=== PATIENT | female | born 1965 | race Caucasian/White ===

== ENCOUNTER 2018-10-04 17:34 | Emergency (ER) | payer OTHER ==
[2018-10-04] MEDS ORDERED: NA CHLORIDE 0.9% 1,000 ML ONE (18:25)
[2018-10-04 18:40] LABS: Absolute Lymphocytes (CBC) 1.8 K/uL (0.7-4.9); Absolute Monocytes 0.8 K/uL (0.1-1.3); Absolute Neutrophil 3.1 K/uL (1.8-8.0); Basophils % 1.1 % (0-1.3); Eosinophils % 0.7 % (0-4.4); Hematocrit 45.8 % (36.0-45.0); Lymphocytes % 31.3 % (15.3-44.8); MPV 8.8 fL (7.6-11.3); RBC Red Blood Cell Count 5.74 M/uL (3.86-4.86)
[2018-10-04 18:51] LABS: Urine Blood NEGATIVE (NEG); Urine Glucose NEGATIVE (NEG); Urine Protein 2+ (NEG); Urine Specific Gravity >1.030 (1.005-1.030); Urine pH 5.5 (5.0-7.0)
[2018-10-04 18:54] LABS: Albumin 4.2 g/dL (3.4-5.0); Bilirubin Direct 0.2 mg/dL (0-0.2); Bilirubin Total 0.9 mg/dL (0.2-1.0); Potassium 4.1 mmol/L (3.5-5.1); Protein, Total 8.6 g/dL (6.4-8.2)
[2018-10-04] MEDS ORDERED: MUPIROCIN 2% OINT 22GM TUBE TOP ONE (19:19)
[2018-10-04] MEDS ORDERED: ONDANSETRON 4 MG/2 ML VIAL ONE ×2 (19:25→20:06)
[2018-10-04] MEDS ORDERED: MORPHINE 4 MG/ML SYR ONE ×2 (19:25→20:06)
--- NOTE | 2018-10-04 19:41 | RAD REPORT ---
EXAM DESCRIPTION: CT - Abdomen Pelvis W Contrast - 10/04/2018 7:27 pm CLINICAL HISTORY: Right-sided abdominal pain, nausea and vomiting COMPARISON: None. TECHNIQUE: Biphasic, helical CT imaging of the abdomen and pelvis was performed following 100 ml non -ionic IV contrast. Oral contrast was given. All CT scans are performed using dose optimization technique as appropriate and may include automated exposure control or mA/KV adjustment according to patient size. FINDINGS: No suspicious findings in the lung bases. No pericardial thickening or effusion. The liver, spleen, and pancreas show no suspicious findings. Gallbladder size is normal. No biliary t ree dilatation. Gallbladder contains numerous punctate gallstones layering in the dependent portion o f the gallbladder. No duct stone seen. No active gallbladder process identifiable. Symmetric renal function is seen with no hydronephrosis or suspicious renal mass. No pyelonephritis o r acute parenchymal process. No bladder abnormalities. No adrenal abnormalities. Uterus and ovaries s how no suspicious findings. No gastric dilatation or wall thickening. There are several prominent but nondilated small bowel loop s. Cecum is low-lying in the pelvis. No appendicitis findings. No acute colon process seen. No free air, free fluid or inflammatory stranding. No hernia, mass or bulky lymphadenopathy. No suspicious bony findings. IMPRESSION: Multiple prominent fluid-filled nondilated small bowel loops. Findings would favor a non specific enteritis. Patient has numerous punctate gallstones without active gallbladder process evident. No biliary tree dilatation or duct stone identified.
[2018-10-04] MEDS ORDERED: LIDOCAINE VISCOUS 2% SOLN 15 ML UDC ONE (20:02)
[2018-10-04] MEDS ORDERED: MAGNE/ALUM HYDROXD 30 ML UCUP ONE (20:02)
[2018-10-04] MEDS ORDERED: FAMOTIDINE 20 MG/2 ML VIAL IV ONE (20:06)
[2018-10-04] MEDS ORDERED: CIPROFLOXACIN HCL 500 MG TAB ONE (20:39)
[2018-10-04] MEDS ORDERED: METRONIDAZOLE 500mg IVPB 500 MG/100 ML BAG IV ONE (20:39)
--- NOTE | 2018-10-04 20:43 | EDPHYS ---
Physician Documentation [facility] Name: Janeth Baca Age: 53 yrs Sex: Female : 1965 Arrival Date: 10/04/2018 Time: 17:38 Bed 27 Private MD: None, None ED Physician Casey Lawson HPI: 10/04 20:49 This 53 yrs old Female presents to ER via Ambulatory with complaints of pm1 Abdominal Pain. 20:49 The patient presents with abdominal pain in the left upper quadrant. Onset: The pm1 symptoms/episode began/occurred 1 week(s) ago. The symptoms do not radiate. Associated signs and symptoms: Pertinent positives: diarrhea, nausea, occasional vomiting with eating, Pertinent negatives: chest pain, dysuria, fever, shortness of breath. The symptoms are described as burning. Modifying factors: The symptoms are alleviated by nothing, the symptoms are aggravated by food. Severity of pain: in the emergency department the pain has resolved pain comes and goes. The patient has not experienced similar symptoms in the past. The patient has not recently seen a physician. 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 - Social history:: Smoking status: Patient/guardian denies using tobacco. - Ebola Screening: : Patient denies travel to an Ebola-affected area in the 21 days before illness onset. ROS: 20:49 Constitutional: Negative for fever, chills, and weight loss, Eyes: Negative for injury, pm1 pain, redness, and discharge, ENT: Negative for injury, pain, and discharge, Neck: Negative for injury, pain, and swelling, Cardiovascular: Negative for chest pain, palpitations, and edema, Respiratory: Negative for shortness of breath, cough, wheezing, and pleuritic chest pain. 20:49 Back: Negative for injury and pain, : Negative for injury, bleeding, discharge, and swelling, MS/Extremity: Negative for injury and deformity, Skin: Negative for injury, rash, and discoloration, Neuro: Negative for headache, weakness, numbness, tingling, and seizure. 20:49 Abdomen/GI: Positive for abdominal pain, nausea, vomiting, and diarrhea. Exam: 20:49 Constitutional: This is a well developed, well nourished patient who is awake, alert, pm1 and in no acute distress. Head/Face: Normocephalic, atraumatic. Eyes: Pupils equal round and reactive to light, extra-ocular motions intact. Lids and lashes normal. Conjunctiva and sclera are non-icteric and not injected. Cornea within normal limits. Periorbital areas with no swelling, redness, or edema. ENT: Nares patent. No nasal discharge, no septal abnormalities noted. Tympanic membranes are normal and external auditory canals are clear. Oropharynx with no redness, swelling, or masses, exudates, or evidence of obstruction, uvula midline. Mucous membranes moist. Neck: Trachea midline, no thyromegaly or masses palpated, and no cervical lymphadenopathy. Supple, full range of motion without nuchal rigidity, or vertebral point tenderness. No Meningismus. Chest/axilla: Normal chest wall appearance and motion. Nontender with no deformity. No lesions are appreciated. Cardiovascular: Regular rate and rhythm with a normal S1 and S2. No gallops, murmurs, or rubs. No pulse deficits. Respiratory: Lungs have equal breath sounds bilaterally, clear to auscultation and percussion. No rales, rhonchi or wheezes noted. No increased work of breathing, no retractions or nasal flaring. Abdomen/GI: Soft, non-tender, with normal bowel sounds. No distension or tympany. No guarding or rebound. No evidence of tenderness throughout. Back: No spinal tenderness. No costovertebral tenderness. Full range of motion. Skin: Warm, dry with normal turgor. Normal color with no rashes, no lesions, and no evidence of cellulitis. MS/ Extremity: Pulses equal, no cyanosis. Neurovascular intact. Full, normal range of motion. 20:49 Neuro: Orientation: is normal, Motor: is normal. Vital Signs: 17:40 BP 132 / 103; Pulse 127; Resp 19; Temp 97.2(TE); Pulse Ox 98% on R/A; Weight 51.71 kg tw2 (R); Height 5 ft. 3 in. (160.02 cm) (R); Pain 7/10; 18:43 BP 138 / 66; Pulse 91; Resp 18; Pulse Ox 99% on R/A; Pain 1/10; mg2 20:17 BP 143 / 75; Pulse 91; Resp 18; Pulse Ox 97% on R/A; Pain 5/10; mg2 21:27 BP 135 / 78; Pulse 90; Resp 18; Pulse Ox 100% on R/A; Pain 2/10; mg2 17:40 Body Mass Index 20.19 (51.71 kg, 160.02 cm) tw2 MDM: 17:48 Patient medically screened. wa 17:59 ED course: Patient without any abdominal tenderness on examination. Patient reports pm1 that she is currently not experiencing any abdominal pain. 19:10 ED course: Patient reports abdominal pain in LUQ. Will order pain medications. pm1 20:42 Data reviewed: vital signs. Data interpreted: Pulse oximetry: on room air is 97 %. pm1 Interpretation: normal. Counseling: I had a detailed discussion with the patient and/or guardian regarding: the historical points, exam findings, and any diagnostic results supporting the discharge/admit diagnosis, lab results, radiology results, the need for outpatient follow up, to return to the emergency department if symptoms worsen or persist or if there are any questions or concerns that arise at home. 10/04 17:58 Order name: Basic Metabolic Panel; Complete Time: 19:11 pm10/04 17:58 Order name: CBC with Diff; Complete Time: 18:51 pm10/04 17:58 Order name: Creatinine for Radiology; Complete Time: 19:11 pm10/04 17:58 Order name: Hepatic Function; Complete Time: 19:11 pm10/04 17:58 Order name: Lipase; Complete Time: 19:11 pm10/04 18:33 Order name: Urine Dipstick--Ancillary (enter results); Complete Time: 19:11 10/04 19:11 Order name: CT Abd/Pelvis - W/Contrast: IV contrast only; Complete Time: 19:47 pm10/04 17:58 Order name: IV Saline Lock; Complete Time: 18:35 pm10/04 17:58 Order name: Labs collected and sent; Complete Time: 18:35 pm10/04 17:58 Order name: Urine Dipstick-Ancillary (obtain specimen); Complete Time: 18:34 pm1 10/04 17:58 Order name: Urine Test (obtain specimen); Complete Time: 18:34 pm1 Administered Medications: 18:34 Drug: NS 0.9% 1000 ml Route: IV; Rate: 1000 ml; Site: right antecubital; mg2 21:28 Follow up: Response: No adverse reaction; IV Status: Completed infusion mg2 19:19 Drug: morphine 4 mg Route: IVP; Site: right antecubital; mg2 20:03 Follow up: Response: No adverse reaction; Marked relief of symptoms mg2 19:19 Drug: Zofran 4 mg Route: IVP; Site: right antecubital; mg2 20:03 Follow up: Response: No adverse reaction; Marked relief of symptoms mg2 20:01 Drug: Pepcid 20 mg Route: IVP; Site: right antecubital; mg2 21:10 Follow up: Response: No adverse reaction; Marked relief of symptoms mg2 20:02 Drug: morphine 4 mg Route: IVP; Site: right antecubital; mg2 21:10 Follow up: Response: No adverse reaction; Marked relief of symptoms mg2 20:02 Drug: Zofran 4 mg Route: IVP; Site: right antecubital; mg2 21:10 Follow up: Response: No adverse reaction; Marked relief of symptoms mg2 20:02 CANCELLED (Duplicate Order): Zofran 4 mg IVP once; over 2 minutes pm1 20:02 CANCELLED (Duplicate Order): morphine 4 mg IVP once pm1 20:20 Drug: GI Cocktail without - (Maalox Suspension 30 ml, Lidocaine Liquid 2 % 15 mg2 ml) Route: PO; 21:26 Follow up: Response: No adverse reaction; Marked relief of symptoms mg2 20:33 Drug: Flagyl 500 mg Volume: 100 ml; Route: IVPB; Rate: 200 ml/hr; Infused Over: 30 mg2 mins; Site: right antecubital; 21:26 Follow up: Response: No adverse reaction; IV Status: Completed infusion mg2 21:26 Drug: Cipro 500 mg Route: PO; mg2 21:26 Follow up: Response: No adverse reaction; Medication administered at discharge. mg2 21:26 Drug: Bentyl 20 mg Route: PO; mg2 21:26 Follow up: Response: No adverse reaction; Medication administered at discharge. mg2 Disposition: 10/04/18 20:43 Discharged to Home. Impression: Other abdominal pain - Enteritis. - Condition is Stable. - Discharge Instructions: Abdominal Pain, Adult, Diarrhea, Adult, Nausea and Vomiting, Adult. - Prescriptions for Cipro 500 mg Oral Tablet - take 1 tablet by ORAL route every 12 hours for 5 days; 10 tablet. Flagyl 500 mg Oral Tablet - take 1 tablet by ORAL route every 8 hours for 5 days; 15 tablet. Tylenol- Codeine #3 300-30 mg Oral Tablet - take 2 tablets by ORAL route every 6 hours As needed; 20 tablet. Zofran ODT 4 mg Oral tablet,disintegrating - place 1 tablet by TRANSLINGUAL route every 8 hours As needed; 20 tablet. Bentyl 20 mg Oral Tablet - take 1 tablet by ORAL route every 6 hours As needed; 20 tablet. - Medication Reconciliation Form, Thank You Letter, Antibiotic Education, Prescription Opioid Use form. - Follow up: Emergency Department; When: As needed; Reason: Worsening of condition. Follow up: Private Physician; When: 2 - 3 days; Reason: Recheck today's complaints, Continuance of care, Re-evaluation by your physician. - Problem is new. - Symptoms have improved. Signatures: Dispatcher [employer] EDMS Ranjan Bhardwaj NP PLSQL DEVELOPER pm1 Roz Paz RN RN tw2 Casey Lawson MD MD mt Oskar Quinteros RN RN mg2 Corrections: (The following items were deleted from the chart) 20:02 20:02 Zofran 4 mg IVP once; over 2 minutes ordered. pm1 pm1 20:02 20:02 morphine 4 mg IVP once ordered. pm1 pm1 20:51 20:43 10/04/2018 20:43 Discharged to Home. Impression: Other abdominal pain - pm1 Enteritis. Condition is Stable. Forms are Medication Reconciliation Form, Thank You Letter, Antibiotic Education, Prescription Opioid Use. Follow up: Emergency Department; When: As needed; Reason: Worsening of condition. Follow up: Private Physician; When: 2 - 3 days; Reason: Recheck today's complaints, Continuance of care, Re-evaluation by your physician. Problem is new. Symptoms have improved. pm1 21:27 20:51 10/04/2018 20:43 Discharged to Home. Impression: Other abdominal pain - mg2 Enteritis. Condition is Stable. Discharge Instructions: Abdominal Pain, Adult, Diarrhea, Adult, Nausea and Vomiting, Adult. Prescriptions for Cipro 500 mg Oral Tablet - take 1 tablet by ORAL route every 12 hours for 5 days; 20 tablet, Flagyl 500 mg Oral Tablet - take 1 tablet by ORAL route every 8 hours for 5 days; 30 tablet, Tylenol-Codeine #3 300-30 mg Oral Tablet - take 2 tablets by ORAL route every 6 hours As needed; 20 tablet, Zofran 4 mg Oral Tablet - take 1 tablet by ORAL route every 12 hours As needed; 20 tablet. and Forms are Medication Reconciliation Form, Thank You Letter, Antibiotic Education, Prescription Opioid Use. Follow up: Emergency Department; When: As needed; Reason: Worsening of condition. Follow up: Private Physician; When: 2 - 3 days; Reason: Recheck today's complaints, Continuance of care, Re-evaluation by your physician. Problem is new. Symptoms have improved. pm1
--- NOTE | 2018-10-04 20:43 | ER ---
Nurse's Notes [facility] Name: Janeth Baca Age: 53 yrs Sex: Female : 1965 Arrival Date: 10/04/2018 Time: 17:38 Bed 27 Private MD: None, None Diagnosis: Other abdominal pain-Enteritis Presentation: 10/04 17:39 Presenting complaint: Patient states: i am thinking pancreatitis, i am hurting on my tw2 right abdomen, burning pain that goes through the back, for 5 days, i cant eat, +n/v. Transition of care: patient was not received from another setting of care. Onset of symptoms was October 04, 2018. Risk Assessment: Do you want to hurt yourself or someone else? Patient reports no desire to harm self or others. Initial Sepsis Screen: Does the patient meet any 2 criteria? No. Patient's initial sepsis screen is negative. Does the patient have a suspected source of infection? No. Patient's initial sepsis screen is negative. Care prior to arrival: None. 17:39 Method Of Arrival: Ambulatory tw2 17:39 Acuity: ALESSANDRO 3 tw2 Triage Assessment: 17:42 General: Appears in no apparent distress. Behavior is calm, cooperative, appropriate tw2 for age. Pain: Complains of pain in left upper quadrant and left lower quadrant. GI: Reports lower abdominal pain, upper abdominal pain, intolerance of fluids, intolerance of food, nausea, vomiting. 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 - Social history:: Smoking status: Patient/guardian denies using tobacco. - Ebola Screening: : Patient denies travel to an Ebola-affected area in the 21 days before illness onset. Screenin:37 Abuse screen: Denies threats or abuse. Denies injuries from another. Nutritional mg2 screening: On no prescribed diet. Tuberculosis screening: No symptoms or risk factors identified. Fall Risk IV access (20 points). Assessment: 18:35 General: Appears in no apparent distress. comfortable, Behavior is calm, cooperative. mg2 Pain: Complains of pain in left upper quadrant Pain radiates to back Pain currently is 1 out of 10 on a pain scale. Quality of pain is described as aching, Pain began gradually, 5 days ago Is intermittent. Neuro: Level of Consciousness is awake, alert, obeys commands, Oriented to person, place, time, situation. Cardiovascular: Capillary refill < 3 seconds Patient's skin is warm and dry. Respiratory: Airway is patent Respiratory effort is even, unlabored, Respiratory pattern is regular, symmetrical. GI: Bowel sounds present X 4 quads. Abd is soft and non tender. : Urine is clear. EENT: No signs and/or symptoms were reported regarding the EENT system. Derm: Skin is intact, is healthy with good turgor, Skin is pink, warm \T\ dry. normal. Musculoskeletal: Circulation, motion, and sensation intact. Capillary refill < 3 seconds. 19:22 Reassessment: patient sent to ct scan. mg2 21:00 Reassessment: patient for discharge after iv antibiotic infusion. mg2 21:27 Reassessment: patient improved. mg2 Vital Signs: 17:40 BP 132 / 103; Pulse 127; Resp 19; Temp 97.2(TE); Pulse Ox 98% on R/A; Weight 51.71 kg tw2 (R); Height 5 ft. 3 in. (160.02 cm) (R); Pain 7/10; 18:43 BP 138 / 66; Pulse 91; Resp 18; Pulse Ox 99% on R/A; Pain 1/10; mg2 20:17 BP 143 / 75; Pulse 91; Resp 18; Pulse Ox 97% on R/A; Pain 5/10; mg2 21:27 BP 135 / 78; Pulse 90; Resp 18; Pulse Ox 100% on R/A; Pain 2/10; mg2 17:40 Body Mass Index 20.19 (51.71 kg, 160.02 cm) tw2 ED Course: 17:38 Patient arrived in ED. sb2 17:38 None, None is Private Physician. sb2 17:40 Triage completed. tw2 17:42 Arm band placed on. tw2 17:48 Casey Lawson MD is Attending Physician. wa 17:48 Ranjan Bhardwaj NP [facility]. pm1 17:48 Attending Physician role handed off by Casey Lawson MD pm1 17:48 Yaneth Garg MD is Attending Physician. pm1 18:19 Oskar Quinteros RN is Primary Nurse. mg2 18:39 Initial lab(s) drawn, by me, sent to lab. Inserted saline lock: 20 gauge in right tl3 antecubital area, using aseptic technique. Blood collected. 18:42 Patient has correct armband on for positive identification. Pulse ox on. NIBP on. Door mg2 closed. Warm blanket given. 18:42 No provider procedures requiring assistance completed. mg2 19:[address] vm2 19:26 CT completed. Patient tolerated procedure well. Patient moved back from CT. vm2 19:27 CT Abd/Pelvis - W/Contrast: IV contrast only In Process Unspecified. EDMS 20:43 Casey Lawson MD is Attending Physician. pm1 21:27 IV discontinued, intact, bleeding controlled, No redness/swelling at site. Pressure mg2 dressing applied. Administered Medications: 18:34 Drug: NS 0.9% 1000 ml Route: IV; Rate: 1000 ml; Site: right antecubital; mg2 21:28 Follow up: Response: No adverse reaction; IV Status: Completed infusion mg2 19:19 Drug: morphine 4 mg Route: IVP; Site: right antecubital; mg2 20:03 Follow up: Response: No adverse reaction; Marked relief of symptoms mg2 19:19 Drug: Zofran 4 mg Route: IVP; Site: right antecubital; mg2 20:03 Follow up: Response: No adverse reaction; Marked relief of symptoms mg2 20:01 Drug: Pepcid 20 mg Route: IVP; Site: right antecubital; mg2 21:10 Follow up: Response: No adverse reaction; Marked relief of symptoms mg2 20:02 Drug: morphine 4 mg Route: IVP; Site: right antecubital; mg2 21:10 Follow up: Response: No adverse reaction; Marked relief of symptoms mg2 20:02 Drug: Zofran 4 mg Route: IVP; Site: right antecubital; mg2 21:10 Follow up: Response: No adverse reaction; Marked relief of symptoms mg2 20:02 CANCELLED (Duplicate Order): Zofran 4 mg IVP once; over 2 minutes pm1 20:02 CANCELLED (Duplicate Order): morphine 4 mg IVP once pm1 20:20 Drug: GI Cocktail without - (Maalox Suspension 30 ml, Lidocaine Liquid 2 % 15 mg2 ml) Route: PO; 21:26 Follow up: Response: No adverse reaction; Marked relief of symptoms mg2 20:33 Drug: Flagyl 500 mg Volume: 100 ml; Route: IVPB; Rate: 200 ml/hr; Infused Over: 30 mg2 mins; Site: right antecubital; 21:26 Follow up: Response: No adverse reaction; IV Status: Completed infusion mg2 21:26 Drug: Cipro 500 mg Route: PO; mg2 21:26 Follow up: Response: No adverse reaction; Medication administered at discharge. mg2 21:26 Drug: Bentyl 20 mg Route: PO; mg2 21:26 Follow up: Response: No adverse reaction; Medication administered at discharge. mg2 Outcome: 20:43 Discharge ordered by . pm1 21:27 Discharged to home ambulatory, with family. mg2 21:27 Condition: stable 21:27 Discharge instructions given to patient, family, Instructed on discharge instructions, follow up and referral plans. medication usage, Demonstrated understanding of instructions, follow-up care, medications, Prescriptions given X 5 21:27 Patient left the ED. mg2 Signatures: Dispatcher [employer] EDMS Ranjan Bhardwaj NP ACUTE CARE NURSING ASSISTANT pm1 Roz Paz RN RN tw2 Diane Biggs 2 Casey Lawson MD MD wa Billeau, Sheri sb2 Pattie Nevarez RN RN tl3 Oskar Quinteros RN RN mg2
[2018-10-04] MEDS ORDERED: DICYCLOMINE HCL 10 MG CAP ONE (21:25)
== END 2018-10-04 21:27 | disposition home or self-care (01) ==
LOC: ER 17:34
DX: K52.9 Noninfective gastroenteritis and colitis, unspecified (principal)
CPT/HCPCS: 36415; 74177; 80048; 80076; 81003; 83690; 85025; 96361; 96365; 96375; 99284; J2405; J7030; Q9967